=== PATIENT | female | born 1985 | race Caucasian/White ===

== ENCOUNTER 2018-06-21 09:10 | Inpatient (IN) | payer OTHER ==
[2018-06-21] MEDS ORDERED: Sodium Chloride 0.9% 10 ML Syringe FLUSH PRN (09:35)
[2018-06-21] MEDS ORDERED: Nalbuphine 20 MG/ML 1 ML Syringe IVPUSH PRN (09:35)
[2018-06-21] MEDS ORDERED: Oxytocin/Lactated Ringers 10 UNIT/1,000 ML BAG IV SCH ×2 (09:45→13:30)
--- NOTE | 2018-06-21 10:36 | PCM.LDHP ---
<Kailash Reeves - Last Filed: 06/21/18 11:31> L&D History of Present Illness - General Date of Service: 06/21/18 Admit Problem/Dx: Admission Diagnosis/Problem Admission Diagnosis/Problem 06/21/18 10:31 Spontaneous rupture of membranes Source of Information: Patient History Limitations: Reports: No Limitations - History of Present Illness Introduction:: Freda is a 32yo at gestational age 38 4/7, who was at her appointment today and was found to have obvious gross rupture of membranes. She states that around 7:15am on 06/21/2018 she noticed a sharp pain in her back that quickly went away after a few seconds and this was concurrent with a clear amount of fluid that since this time has been continuously leaking in small amounts. She states that she did not believe this to be incontinence since the fluid felt different. There was no blood in the fluid or vaginal bleeding. She states positive movement. She has an CHRYSTAL of 07/01/2018 confirmed by LMP and early ultrasound on 04/20/2018. She is blood type A+, antibody negative, rubella status immune, VDRL /RPR nonreactive. She was GBS negative on 05/31/2018. This has been complicated by anemia in the third trimester that has been treated with iron and vitamin C. 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 Medications: Ferrous sulfate 325mg twice a day. vitamin once daily. Vitamin C once daily. Allergies: Neosporin- rash Review of systems: as below Assessment/ Plan: 1. Spontaneous rupture of membranes plan for normal spontaneous vaginal delivery. 2. Patient desires epidural for pain management. 3. GBS negative, no need for antibiotic prophylaxis. 4. Blood type A+, no need for rhogam. 5. Patient plans to breast feed. 6. HPV will require follow up after delivery. Pain Score: 0 Associated Symptoms: Reports: vaginal fluid - Related Data Allergies/Adverse Reactions: Allergies Allergy/AdvReac Type Severity Reaction Status Date / Time bacitracin Allergy Rash Verified 06/21/18 09:33 [From Neosporin ([id number])] neomycin Allergy Rash Verified 06/21/18 09:33 [From Neosporin ([id number])] polymyxin B Allergy Rash Verified 06/21/18 09:33 [From Neosporin ([id number])] Home Medications: Home Meds Ferrous Sulfate 325 mg PO BID 06/21/18 [History] Vits #93/Iron Fum/FA [ Formula Tablet] 1 each PO DAILY [History] Past Medical History HEENT History: Reports: None Cardiovascular History: Reports: None Respiratory History: Reports: None Gastrointestinal History: Reports: None Genitourinary History: Reports: None 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 No history of miscarriage, elective , or ectopics. Regular menses at approx. 28 days without heavy flow days. Menarche age 12yo. Musculoskeletal History: Reports: None Neurological History: Reports: None Psychiatric History: Reports: None Endocrine/Metabolic History: Reports: None Hematologic History: Reports: Anemia Other Hematologic History: in , resolved on iron supplement with Vit C. Immunologic History: Reports: None Oncologic (Cancer) History: Reports: None Dermatologic History: Reports: Psoriasis (States past history of psoriasis like rash that resolved with elimination of cow's milk from diet.) - Infectious Disease History Infectious Disease History: Reports: None - Past Surgical History Head Surgeries/Procedures: Reports: None HEENT Surgical History: Reports: Myringotomy w Tube(s) (in childhood, resolved without complications.), Oral Surgery (removal of wisdom teeth as teenager without complications) Cardiovascular Surgical History: Reports: None Respiratory Surgical History: Reports: None GI Surgical History: Reports: None Female Surgical History: Reports: None Endocrine Surgical History: Reports: None Neurological Surgical History: Reports: None Musculoskeletal Surgical History: Reports: None Oncologic Surgical History: Reports: None Dermatological Surgical History: Reports: None Social & Family History - Family History HEENT: Reports: None Cardiac: Reports: Other (See Below) (Mother had unknown cardiovascular disease and passed as a result at age 42. Patient unsure of exact nature. Stated mother was a smoker with poor cholesterol levels.) Respiratory: Reports: None GI: Reports: None : Reports: None OBGYN: Reports: None Musculoskeletal: Reports: None Neurological: Reports: None Psychiatric: Reports: None Endocrine/Metabolic: Reports: None Hematologic: Reports: None Immunologic: Reports: None Dermatologic: Reports: None Oncologic: Reports: Lung (Father passed at 53 from lung cancer, was smoker.) Other Family History: Sister age 28yo alive and well. - Tobacco Use Smoking Status *Q: Never Smoker Tobacco Use Within Last Twelve Months: No - Tobacco Core Measures Tobacco Use/Smoking Within Last 30 Days: No - Caffeine Use Caffeine Use: Reports: None - Alcohol Use Alcohol Use History: Yes Alcohol Use Frequency: Not Used in Over 6 Months Alcohol Use Comment: Denies alcohol use in , states rarely 1-2 per month before . - Recreational Drug Use Recreational Drug Use: No Drug Use in Last 12 Months: No - Sexual History Sexual History: Reports: Single Partner - Living Situation & Occupation Living situation: Reports: Occupation: Employed Social History Comment: Lives in apartment in [place], feels safe at home with . No history recent of travel outside the , no history. Has two dogs. H&P Review of Systems - Review of Systems: Review Of Systems: See Below General: Reports: No Symptoms HEENT: Reports: No Symptoms Pulmonary: Reports: No Symptoms Cardiovascular: Reports: Edema (Trace edema on left leg at ankle.) Gastrointestinal: Reports: No Symptoms Genitourinary: Reports: No Symptoms Musculoskeletal: Reports: No Symptoms Psychiatric: Reports: No Symptoms Neurological: Reports: No Symptoms Hematologic/Lymphatic: Reports: Anemia (In , treated with Iron and Vit C.) Immunologic: Reports: Other (Mild intolerance to cow's milk, states mild rashes and gerd like symptoms. No anaphylaxis.) L&D Exam - Exam Exam: See Below - Vital Signs Vital Signs: BP: 120/76 HR:84 RR:16 Temp: 99.8 F Weight: 77.564 kg - OB Specific Fundal Height In cm: 38 Contraction Intensity: Patient denies feeling contractions. Movement: Active Heart Tones: Present Heart Tones per Min: 144 - Lama Score Lama Score Cervix Position: Anterior Lama Score Consistency: Soft Lama Score Effacement: >80% Lama Score Dilation: 3-4 cm Lama Score 's Station: -3 Lama Score Total: 9 - Exam General: Alert, Oriented HEENT: Conjunctiva Clear, EOMI, Hearing Intact, Mucosa Moist & [place], Nares Patent, Posterior Pharynx Clear, Pupils Equal, Pupils Reactive Neck: Supple, Trachea Midline Lungs: Clear to Auscultation, Normal Respiratory Effort Cardiovascular: Regular Rate, Regular Rhythm, Normal S1, Normal S2 GI/Abdominal Exam: Normal Bowel Sounds (Gravid) Back Exam: Normal Inspection, Full Range of Motion Extremities: Normal Range of Motion, Non-Tender, Other (Trace edema to ankles.) Skin: Warm, Dry, Intact Neurological: Cranial Nerves Intact, Reflexes Equal Bilateral Psychiatric: Alert, Normal Affect, Normal Mood - Patient Data Lab Results Last 24 hrs: Laboratory Results - last 24 hr 06/21/18 Range/Units 10:00 WBC 6.21 (3.98-10.04) K/mm3 RBC 4.04 (3.98-5.22) M/mm3 Hgb 13.2 (11.2-15.7) gm/L Hct 39.4 (34.1-44.9) % MCV 97.5 H (79.4-94.8) fl MCH 32.7 H (25.6-32.2) pg MCHC 33.5 (32.2-35.5) g/dl RDW Std Deviation 44.9 (36.4-46.3) fL Plt Count 148 L (182-369) K/mm3 MPV 11.1 (9.4-12.3) fl Neut % (Auto) 70.6 (34.0-71.1) % Lymph % (Auto) 20.8 (19.3-51.7) % [place] % (Auto) 5.8 (4.7-12.5) % Eos % (Auto) 2.3 (0.7-5.8) Baso % (Auto) 0.2 (0.1-1.2) % Neut # (Auto) 4.39 (1.56-6.13) K/mm3 Lymph # (Auto) 1.29 (1.18-3.74) K/mm3 [place] # (Auto) 0.36 (0.24-0.36) K/mm3 Eos # (Auto) 0.14 (0.04-0.36) K/mm3 Baso # (Auto) 0.01 (0.01-0.08) K/mm3 Result Diagrams: 06/21/18 10:00 Problem List Initiated/Reviewed/Updated: Yes Orders Last 24hrs: Active Orders 24 hr Category Date Time Status Activity as Tolerated [RC] PFP Care 06/21/18 09:35 Active Communication Order [RC] ASDIRECTED Care 06/21/18 09:35 Active Heart Tones [RC] ASDIRECTED Care 06/21/18 09:36 Active Non Stress Test [RC] PER UNIT ROUTINE Care 06/21/18 09:35 Active Notify Provider [RC] PFP Care 06/21/18 09:35 Active Notify Provider [RC] PRN Care 06/21/18 09:35 Active Peripheral IV Care [RC] . DIRECTED Care 06/21/18 09:36 Active Vital Signs [RC] PER UNIT ROUTINE Care 06/21/18 09:35 Active Regular Diet [DIET] Diet 06/21/18 Lunch Active RAPID PLASMA REAGIN,RPR [CHEM] Routine Lab 06/21/18 10:00 Received Lactated Ringers [Ringers, Lactated] 1,000 ml Med 06/21/18 09:45 Active IV ASDIRECTED Nalbuphine [Nubain] Med 06/21/18 09:35 Active 10 mg IVPUSH Q2H PRN Oxytocin/Lactated Ringers [Pitocin in LR 10 Units/1,000 Med 06/21/18 09:45 Active ML] 10 unit in 1,000 ml IV .CONTINUOUS Sodium Chloride 0.9% [Saline Flush] Med 06/21/18 09:35 Active 10 ml FLUSH ASDIRECTED PRN Electronic Heart Tones Ext w TOCO [WOMSER] Oth 06/21/18 09:35 Ordered Routine Electronic Heart Tones Internal [WOMSER] Per Unit Oth 06/21/18 09:35 Ordered Routine Peripheral IV Insertion Adult [OM.PC] Routine Oth 06/21/18 09:35 Ordered Resuscitation Status Routine Resus Stat 06/21/18 09:35 Ordered Medication Orders Lactated Ringer's (Ringers, Lactated) 1,000 mls @ 100 mls/hr IV ASDIRECTED HELENA Oxytocin/Lactated Ringer's (Pitocin In Lr 10 Units/1,000 Ml) 10 unit in 1,000 mls @ 500 mls/hr IV .CONTINUOUS HELENA Nalbuphine HCl (Nubain) 10 mg IVPUSH Q2H PRN PRN Reason: pain Sodium Chloride (Saline Flush) 10 ml FLUSH ASDIRECTED PRN PRN Reason: Keep Vein Open <Nicolas Estes - Last Filed: 06/22/18 06:51> L&D History of Present Illness - General Admit Problem/Dx: Patient Status Order with Admit Dx/Problem 06/21/18 16:33 Patient Status [ADT] Routine Admission Diagnosis/Problem Admission Diagnosis/Problem - planned L&D Exam - Vital Signs Vital Signs: Last Vital Signs Temp 37.7 C 06/21/18 13:40 Pulse 84 06/21/18 13:40 Resp 16 06/21/18 15:55 BP 125/82 06/21/18 13:40 Pulse Ox 99 06/21/18 13:40 - Patient Data Lab Results Last 24 hrs: Laboratory Results - last 24 hr 06/21/18 06/21/18 Range/Units 10:00 10:00 WBC 6.21 (3.98-10.04) K/mm3 RBC 4.04 (3.98-5.22) M/mm3 Hgb 13.2 (11.2-15.7) gm/L Hct 39.4 (34.1-44.9) % MCV 97.5 H (79.4-94.8) fl MCH 32.7 H (25.6-32.2) pg MCHC 33.5 (32.2-35.5) g/dl RDW Std Deviation 44.9 (36.4-46.3) fL Plt Count 148 L (182-369) K/mm3 MPV 11.1 (9.4-12.3) fl Neut % (Auto) 70.6 (34.0-71.1) % Lymph % (Auto) 20.8 (19.3-51.7) % [place] % (Auto) 5.8 (4.7-12.5) % Eos % (Auto) 2.3 (0.7-5.8) Baso % (Auto) 0.2 (0.1-1.2) % Neut # (Auto) 4.39 (1.56-6.13) K/mm3 Lymph # (Auto) 1.29 (1.18-3.74) K/mm3 [place] # (Auto) 0.36 (0.24-0.36) K/mm3 Eos # (Auto) 0.14 (0.04-0.36) K/mm3 Baso # (Auto) 0.01 (0.01-0.08) K/mm3 RPR Non-reactive (NONREACTIVE) Result Diagrams: 06/21/18 10:00 - Problem List (1) 38 weeks gestation of SNOMED Code(s): 53512925 ICD Code: Z3A.38 - 38 WEEKS GESTATION OF Status: Acute Current Visit: Yes (2) Anemia complicating SNOMED Code(s): 14779808 ICD Code: O99.019 - ANEMIA COMPLICATING , UNSPECIFIED TRIMESTER Status: Acute Current Visit: Yes Problem List Initiated/Reviewed/Updated: Yes Orders Last 24hrs: Active Orders 24 hr Category Date Time Status Patient Status [ADT] Routine ADT 06/21/18 16:33 Active Activity as Tolerated [RC] PFP Care 06/21/18 09:35 Active Communication Order [RC] ASDIRECTED Care 06/21/18 09:35 Active Communication Order [RC] ASDIRECTED Care 06/21/18 13:13 Active Notify Provider [RC] ASDIRECTED Care 06/21/18 13:13 Active Notify Provider [RC] PFP Care 06/21/18 09:35 Active Notify Provider [RC] PRN Care 06/21/18 09:35 Active Oxygen Therapy [RC] ASDIRECTED Care 06/21/18 13:13 Active Peripheral IV Care [RC] . DIRECTED Care 06/21/18 09:36 Active Peripheral IV Care [RC] . DIRECTED Care 06/22/18 06:38 Ordered Procedure Site Prep Instruct [RC] ASDIRECTED Care 06/22/18 06:38 Ordered Pulse Oximetry [RC] ASDIRECTED Care 06/21/18 13:13 Active Verify Patient Consent Obtain [RC] ASDIRECTED Care 06/21/18 13:13 Active Verify Patient Consent Obtain [RC] PER UNIT ROUTINE Care 06/22/18 06:38 Ordered Vital Signs [RC] PER UNIT ROUTINE Care 06/21/18 09:35 Active Vital Signs [RC] PFP Care 06/22/18 06:38 Ordered Nothing Per Oral Diet [DIET] Diet 06/22/18 Breakfast Ordered Regular Diet [DIET] Diet 06/21/18 Lunch Active TYPE AND SCREEN [BBK] Routine Lab 06/22/18 06:38 Ordered Lactated Ringers @ 125 MLS/HR(1000ml) Med 06/22/18 06:45 Ordered Lactated Ringers [Ringers, Lactated] 1,000 ml IV ASDIRECTED Lactated Ringers [Ringers, Lactated] 1,000 ml Med 06/21/18 09:45 Active IV ASDIRECTED Nalbuphine [Nubain] Med 06/21/18 09:35 Active 10 mg IVPUSH Q2H PRN Nalbuphine [Nubain] Med 06/22/18 06:38 Ordered 10 mg IVPUSH Q2H PRN Oxytocin/Lactated Ringers [Pitocin in LR 10 Units/1,000 Med 06/21/18 09:45 Active ML] 10 unit in 1,000 ml IV .CONTINUOUS Oxytocin/Lactated Ringers [Pitocin in LR 10 Units/1,000 Med 06/22/18 06:45 Ordered ML] 10 unit in 1,000 ml IV ASDIRECTED Oxytocin/Lactated Ringers [Pitocin in LR 10 Units/1,000 Med 06/21/18 13:30 Active ML] 10 unit in 1,000 ml IV TITRATE Sodium Chloride 0.9% [Saline Flush] Med 06/21/18 09:35 Active 10 ml FLUSH ASDIRECTED PRN Sodium Chloride 0.9% [Saline Flush] Med 06/22/18 06:38 Ordered 10 ml FLUSH ASDIRECTED PRN ceFAZolin [Ancef] 2 gm Med 06/22/18 06:38 Ordered Premix Bag 1 bag IV ONETIME diphenhydrAMINE [Benadryl] Med 06/21/18 13:13 Active 25 mg IVPUSH Q6H PRN ePHEDrine [ePHEDrine sulfate] Med 06/21/18 13:13 Active 5 mg IVPUSH ASDIRECTED PRN fentaNYL [Sublimaze] Med 06/21/18 13:13 Active 100 mcg EPIDUR Q3H PRN fentaNYL/Bupivacaine/NS/PF [[id number]-Olfha-QX 2 MCG/ML- Med 06/21/18 13:15 Active 0.125%] 100 ml EP ASDIRECTED Electronic Heart Tones Ext w TOCO [WOMSER] Oth 06/21/18 09:35 Ordered Routine Electronic Heart Tones Internal [WOMSER] Per Unit Oth 06/21/18 09:35 Ordered Routine Peripheral IV Insertion Adult [OM.PC] Routine Oth 06/21/18 09:35 Ordered Peripheral IV Insertion Adult [OM.PC] Routine Oth 06/22/18 06:38 Ordered Schedule Procedure [COMM] Per Unit Routine Oth 06/22/18 06:38 Ordered Resuscitation Status Routine Resus Stat 06/21/18 09:35 Ordered Medication Orders Diphenhydramine HCl (Benadryl) 25 mg IVPUSH Q6H PRN PRN Reason: Itching Ephedrine Sulfate (Ephedrine Sulfate) 5 mg IVPUSH ASDIRECTED PRN PRN Reason: HYPOTENTSION Fentanyl (Sublimaze) 100 mcg EPIDUR Q3H PRN PRN Reason: Pain Last Admin: 06/21/18 15:29 Dose: 100 mcg Fentanyl/Bupivacaine HCl (Lipqabmz-Dawlr-Kw 2 Mcg/Ml-0.125%) 100 ml EP ASDIRECTED HELENA Last Admin: 06/22/18 00:21 Dose: 100 ml Admin: 06/21/18 15:30 Dose: 100 ml Lactated Ringer's (Ringers, Lactated) 1,000 mls @ 100 mls/hr IV ASDIRECTED HELENA Last Admin: 06/21/18 19:45 Dose: 100 mls/hr Infusion: 06/21/18 19:45 Dose: 100 mls/hr Admin: 06/21/18 15:33 Dose: 100 mls/hr Infusion: 06/21/18 15:33 Dose: 100 mls/hr Admin: 06/21/18 13:46 Dose: 100 mls/hr Oxytocin/Lactated Ringer's (Pitocin In Lr 10 Units/1,000 Ml) 10 unit in 1,000 mls @ 500 mls/hr IV .CONTINUOUS HELENA Oxytocin/Lactated Ringer's (Pitocin In Lr 10 Units/1,000 Ml) 10 unit in 1,000 mls @ 12 mls/hr IV TITRATE HELENA; Protocol Last Titration: 06/22/18 03:25 Dose: 12 munits/min, 72 mls/hr Titration: 06/22/18 02:31 Dose: 10 munits/min, 60 mls/hr Titration: 06/22/18 02:01 Dose: 8 munits/min, 48 mls/hr Titration: 06/21/18 22:49 Dose: 6 munits/min, 36 mls/hr Titration: 06/21/18 20:20 Dose: 8 munits/min, 48 mls/hr Titration: 06/21/18 19:40 Dose: 6 munits/min, 36 mls/hr Titration: 06/21/18 19:00 Dose: 4 munits/min, 24 mls/hr Titration: 06/21/18 17:33 Dose: 2 munits/min, 12 mls/hr Titration: 06/21/18 17:14 Dose: 4 munits/min, 24 mls/hr Titration: 06/21/18 16:55 Dose: 6 munits/min, 36 mls/hr Titration: 06/21/18 16:26 Dose: 4 munits/min, 24 mls/hr Titration: 06/21/18 15:50 Dose: 2 munits/min, 12 mls/hr Titration: 06/21/18 14:11 Dose: 4 munits/min, 24 mls/hr Admin: 06/21/18 13:46 Dose: 2 munits/min, 12 mls/hr Cefazolin Sodium/Dextrose 2 gm (/ Premix) 50 mls @ 100 mls/hr IV ONETIME ONE Stop: 06/22/18 07:07 Lactated Ringer's (Ringers, Lactated) 1,000 mls @ 125 mls/hr IV ASDIRECTED HELENA Oxytocin/Lactated Ringer's (Pitocin In Lr 10 Units/1,000 Ml) 10 unit in 1,000 mls @ 100 mls/hr IV ASDIRECTED HELENA; Protocol Nalbuphine HCl (Nubain) 10 mg IVPUSH Q2H PRN PRN Reason: pain Nalbuphine HCl (Nubain) 10 mg IVPUSH Q2H PRN PRN Reason: pain Sodium Chloride (Saline Flush) 10 ml FLUSH ASDIRECTED PRN PRN Reason: Keep Vein Open Sodium Chloride (Saline Flush) 10 ml FLUSH ASDIRECTED PRN PRN Reason: Keep Vein Open Assessment/Plan Comment:: I have seen and evaluated the patient and agree with the student's note as above. Refer to observation for spontaneous rupture of membranes Start Pitocin for augmentation of labor with irregular contractions per patient report Continuous monitoring Place IV and have Lactated Ringer's at 125 ml/hr May have small amounts of regular diet Activity as tolerated May have epidural as desired Plans to breast-feed after delivery Anticipate vaginal delivery unless otherwise indicated Nicolas Estes MD 6:51 AM 06/22/2018
[2018-06-21] MEDS ORDERED: ePHEDrine 50 MG/ML SDV IVPUSH PRN (13:13)
[2018-06-21] MEDS ORDERED: fentaNYL 100 MCG/2 ML SDV EPIDUR PRN (13:13)
[2018-06-21] MEDS ORDERED: diphenhydrAMINE 50 MG/ML SDV IVPUSH PRN (13:13)
--- NOTE | 2018-06-21 13:40 | PCM.PREANE ---
Preanesthetic Assessment - Anesthesia/Transfusion/Family Hx Anesthesia History: No Prior Anesthesia Family History of Anesthesia Reaction: No Transfusion History: No Prior Transfusion(s) - Review of Systems General: No Symptoms Pulmonary: No Symptoms Cardiovascular: Dyspnea on Exertion (with ) Gastrointestinal: Abdominal Pain (labor contractions) Neurological: No Symptoms - Physical Assessment Pulse: 84 O2 Sat by Pulse Oximetry: 99 Respiratory Rate: 18 Blood Pressure: 125/82 Temperature: 37.7 C Vital Signs: Last Vital Signs Temp 37.7 C 06/21/18 09:35 Pulse 84 06/21/18 09:35 Resp 18 06/21/18 09:35 BP 125/82 06/21/18 09:35 Pulse Ox 99 06/21/18 09:35 Height: 1.57 m Weight: 77.564 kg ASA Class: 2 Mental Status: Alert & Oriented x3 Airway Class: Mallampati = 1 Dentition: Reports: Normal Dentition Thyro-Mental Finger Breadths: 3 Mouth Opening Finger Breadths: 3 ROM/Head Extension: Full Lungs: Clear to Auscultation, Normal Respiratory Effort Cardiovascular: Regular Rate, Regular Rhythm - Lab Values: Laboratory Last Values WBC 6.21 K/mm3 (3.98-10.04) 06/21/18 10:00 RBC 4.04 M/mm3 (3.98-5.22) 06/21/18 10:00 Hgb 13.2 gm/L (11.2-15.7) 06/21/18 10:00 Hct 39.4 % (34.1-44.9) 06/21/18 10:00 MCV 97.5 fl (79.4-94.8) H 06/21/18 10:00 MCH 32.7 pg (25.6-32.2) H 06/21/18 10:00 MCHC 33.5 g/dl (32.2-35.5) 06/21/18 10:00 RDW Std Deviation 44.9 fL (36.4-46.3) 06/21/18 10:00 Plt Count 148 K/mm3 (182-369) L 06/21/18 10:00 MPV 11.1 fl (9.4-12.3) 06/21/18 10:00 Neut % (Auto) 70.6 % (34.0-71.1) 06/21/18 10:00 Lymph % (Auto) 20.8 % (19.3-51.7) 06/21/18 10:00 [place] % (Auto) 5.8 % (4.7-12.5) 06/21/18 10:00 Eos % (Auto) 2.3 (0.7-5.8) 06/21/18 10:00 Baso % (Auto) 0.2 % (0.1-1.2) 06/21/18 10:00 Neut # (Auto) 4.39 K/mm3 (1.56-6.13) 06/21/18 10:00 Lymph # (Auto) 1.29 K/mm3 (1.18-3.74) 06/21/18 10:00 [place] # (Auto) 0.36 K/mm3 (0.24-0.36) 06/21/18 10:00 Eos # (Auto) 0.14 K/mm3 (0.04-0.36) 06/21/18 10:00 Baso # (Auto) 0.01 K/mm3 (0.01-0.08) 06/21/18 10:00 - Allergies Allergies/Adverse Reactions: Allergies Allergy/AdvReac Type Severity Reaction Status Date / Time bacitracin Allergy Rash Verified 06/21/18 09:33 [From Neosporin (vnl-[id number])] neomycin Allergy Rash Verified 06/21/18 09:33 [From Neosporin (ial-exh-thxvs)] polymyxin B Allergy Rash Verified 06/21/18 09:33 [From Neosporin (sus-qhu-eowwm)] - Anesthesia Plan Pre-Op Medication Ordered: None - Acknowledgements Anesthesia Type Planned: Epidural Pt an Appropriate Candidate for the Planned Anesthesia: Yes Alternatives and Risks of Anesthesia Discussed w Pt/Guardian: Yes Pt/Guardian Understands and Agrees with Anesthesia Plan: Yes PreAnesthesia Questionnaire - Past Health History Medical/Surgical History: Denies Medical/Surgical History HEENT History: Reports: None Cardiovascular History: Reports: None Respiratory History: Reports: None Gastrointestinal History: Reports: None, GERD Genitourinary History: Reports: None 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 No history of miscarriage, elective , or ectopics. Regular menses at approx. 28 days without heavy flow days. Menarche age 12yo. Musculoskeletal History: Reports: None Neurological History: Reports: None Psychiatric History: Reports: None Endocrine/Metabolic History: Reports: None Hematologic History: Reports: Anemia Other Hematologic History: in , resolved on iron supplement with Vit C. Immunologic History: Reports: None Oncologic (Cancer) History: Reports: None Dermatologic History: Reports: Psoriasis (States past history of psoriasis like rash that resolved with elimination of cow's milk from diet.) - Infectious Disease History Infectious Disease History: Reports: None - Past Surgical History Head Surgeries/Procedures: Reports: None HEENT Surgical History: Reports: Myringotomy w Tube(s) (in childhood, resolved without complications.), Oral Surgery (removal of wisdom teeth as teenager without complications) Cardiovascular Surgical History: Reports: None Respiratory Surgical History: Reports: None GI Surgical History: Reports: None Female Surgical History: Reports: None Endocrine Surgical History: Reports: None Neurological Surgical History: Reports: None Musculoskeletal Surgical History: Reports: None Oncologic Surgical History: Reports: None Dermatological Surgical History: Reports: None - SUBSTANCE USE Smoking Status *Q: Never Smoker Tobacco Use Within Last Twelve Months: No Second Hand Smoke Exposure: No Recreational Drug Use History: No - HOME MEDS Home Medications: Home Meds Ferrous Sulfate 325 mg PO BID 06/21/18 [History] Vits #93/Iron Fum/FA [ Formula Tablet] 1 each PO DAILY [History] - CURRENT (IN HOUSE) MEDS Current Meds: Current Medications Diphenhydramine HCl (Benadryl) 25 mg IVPUSH Q6H PRN PRN Reason: Itching Ephedrine Sulfate (Ephedrine Sulfate) 5 mg IVPUSH ASDIRECTED PRN PRN Reason: HYPOTENTSION Fentanyl (Sublimaze) 100 mcg EPIDUR Q3H PRN PRN Reason: Pain Fentanyl/Bupivacaine HCl (Roemhqtk-Czrdk-Os 2 Mcg/Ml-0.125%) 100 ml EP ASDIRECTED HELENA Lactated Ringer's (Ringers, Lactated) 1,000 mls @ 100 mls/hr IV ASDIRECTED HELENA Oxytocin/Lactated Ringer's (Pitocin In Lr 10 Units/1,000 Ml) 10 unit in 1,000 mls @ 500 mls/hr IV .CONTINUOUS HELENA Oxytocin/Lactated Ringer's (Pitocin In Lr 10 Units/1,000 Ml) 10 unit in 1,000 mls @ 12 mls/hr IV TITRATE HELENA; Protocol Nalbuphine HCl (Nubain) 10 mg IVPUSH Q2H PRN PRN Reason: pain Sodium Chloride (Saline Flush) 10 ml FLUSH ASDIRECTED PRN PRN Reason: Keep Vein Open
[2018-06-21] MEDS: Lactated Ringers 1,000 ML IV SCH ×3 (13:46→19:45)
[2018-06-21] MEDS: fentaNYL/Bupivacaine-NS 2 MCG/ML-0.125%/PF 100 ML Bag EP SCH (15:30)
--- NOTE | 2018-06-21 18:39 | PCM.PNLD ---
Labor Progress Note - VS & Meds Vital Signs: Last Vital Signs Temp 37.7 C 06/21/18 13:40 Pulse 84 06/21/18 13:40 Resp 16 06/21/18 15:55 BP 125/82 06/21/18 13:40 Pulse Ox 99 06/21/18 13:40 Active Medications: Current Medications Diphenhydramine HCl (Benadryl) 25 mg IVPUSH Q6H PRN PRN Reason: Itching Ephedrine Sulfate (Ephedrine Sulfate) 5 mg IVPUSH ASDIRECTED PRN PRN Reason: HYPOTENTSION Fentanyl (Sublimaze) 100 mcg EPIDUR Q3H PRN PRN Reason: Pain Last Admin: 06/21/18 15:29 Dose: 100 mcg Fentanyl/Bupivacaine HCl (Pphfstju-Ytkcq-Mh 2 Mcg/Ml-0.125%) 100 ml EP ASDIRECTED HELENA Last Admin: 06/21/18 15:30 Dose: 100 ml Lactated Ringer's (Ringers, Lactated) 1,000 mls @ 100 mls/hr IV ASDIRECTED HELENA Last Admin: 06/21/18 15:33 Dose: 100 mls/hr Oxytocin/Lactated Ringer's (Pitocin In Lr 10 Units/1,000 Ml) 10 unit in 1,000 mls @ 500 mls/hr IV .CONTINUOUS HELENA Oxytocin/Lactated Ringer's (Pitocin In Lr 10 Units/1,000 Ml) 10 unit in 1,000 mls @ 12 mls/hr IV TITRATE HELENA; Protocol Last Titration: 06/21/18 17:33 Dose: 2 munits/min, 12 mls/hr Nalbuphine HCl (Nubain) 10 mg IVPUSH Q2H PRN PRN Reason: pain Sodium Chloride (Saline Flush) 10 ml FLUSH ASDIRECTED PRN PRN Reason: Keep Vein Open - Uterine Contractions Uterine Monitoring Mode: External [place] Contraction Frequency (min): 2-3 Contraction Duration (sec): 60-75 Contraction Intensity: Moderate to Strong Uterine Resting Tone: Soft - Monitoring Monitor Mode: Doppler/Auscultation Heart Rate (FHR) Baseline: 130 Heart Rate (FHR) Per Doppler: 130 Heart Rate (FHR) Variability: Moderate (6-25 bmp) Accelerations: Present, 15x15 Decelerations: None, Variable (questionable variable decelerations around 1711) Strip Review: Category I - Vaginal Exam Dilation (cm): 5 Effacement (Percent): 80 Station: -3 Cervical Position: Midposition Sterile Vaginal Exam Performed By: Nicolas Estes Vaginal Exam Comment: Artificial rupture of membranes of a forebag with [place] with return of small amount of blood-tinged fluid. Mother and baby tolerated without difficulty. - Labor Progress (Free Text) Labor Progress: Continue Pitocin for augmentation of labor Continue to monitor vitals Continuous monitoring for Patient with epidural in place Patient making slow progress at this time Anticipate vaginal delivery unless otherwise indicated Nicolas Estes M.D. 6:38 PM 06/21/2018
--- NOTE | 2018-06-21 19:50 | PCM.SN ---
- Free Text/Narrative Note: 1928 called to room 31 for epidural line that came apart at filter-clamp on patient's shoulder. Using sterile technique the epidural catheter was cut 2.5 inches back and a new clamp was placed, flushed, and connected to the filter. Out of room at 1940. Report to NICKOLAS.
[2018-06-21] MEDS ORDERED: Bupivacaine 0.25% 10 ML SDV ONE (22:00)
[2018-06-22] MEDS: fentaNYL/Bupivacaine-NS 2 MCG/ML-0.125%/PF 100 ML Bag EP SCH (00:21)
[2018-06-22] MEDS ORDERED: Metoclopramide 10 MG/2 ML SDV ONE (06:37)
[2018-06-22] MEDS ORDERED: Bupivacaine 0.5% 30 ML SDV ONE (06:37)
[2018-06-22] MEDS ORDERED: Metoclopramide 10 MG/2 ML SDV IVPUSH ONE (06:38)
[2018-06-22] MEDS ORDERED: Citric Acid/Sodium Citrate Solution 30 ML Cup PO ONE (06:38)
[2018-06-22] MEDS ORDERED: Nalbuphine 20 MG/ML 1 ML Syringe IVPUSH PRN (06:38)
[2018-06-22] MEDS ORDERED: Sodium Chloride 0.9% 10 ML Syringe FLUSH PRN (06:38)
[2018-06-22] MEDS ORDERED: ceFAZolin 2 GM in Premix Bag 1 BAG IV ONE (06:38)
[2018-06-22] MEDS ORDERED: Oxytocin/Lactated Ringers 10 UNIT/1,000 ML BAG IV SCH ×2 (06:45→09:36)
[2018-06-22] MEDS ORDERED: Lactated Ringers 1,000 ML IV SCH ×2 (06:45→09:36)
--- NOTE | 2018-06-22 06:48 | PCM.PNLD ---
Labor Progress Note - VS & Meds Vital Signs: Last Vital Signs Temp 37.7 C 06/21/18 13:40 Pulse 84 06/21/18 13:40 Resp 16 06/21/18 15:55 BP 125/82 06/21/18 13:40 Pulse Ox 99 06/21/18 13:40 Active Medications: Current Medications Diphenhydramine HCl (Benadryl) 25 mg IVPUSH Q6H PRN PRN Reason: Itching Ephedrine Sulfate (Ephedrine Sulfate) 5 mg IVPUSH ASDIRECTED PRN PRN Reason: HYPOTENTSION Fentanyl (Sublimaze) 100 mcg EPIDUR Q3H PRN PRN Reason: Pain Last Admin: 06/21/18 15:29 Dose: 100 mcg Fentanyl/Bupivacaine HCl ([place]-Wwtkd-Cn 2 Mcg/Ml-0.125%) 100 ml EP ASDIRECTED HELENA Last Admin: 06/22/18 00:21 Dose: 100 ml Lactated Ringer's (Ringers, Lactated) 1,000 mls @ 100 mls/hr IV ASDIRECTED HELENA Last Admin: 06/21/18 19:45 Dose: 100 mls/hr Oxytocin/Lactated Ringer's (Pitocin In Lr 10 Units/1,000 Ml) 10 unit in 1,000 mls @ 500 mls/hr IV .CONTINUOUS HELENA Oxytocin/Lactated Ringer's (Pitocin In Lr 10 Units/1,000 Ml) 10 unit in 1,000 mls @ 12 mls/hr IV TITRATE HELENA; Protocol Last Titration: 06/22/18 03:25 Dose: 12 munits/min, 72 mls/hr Nalbuphine HCl (Nubain) 10 mg IVPUSH Q2H PRN PRN Reason: pain Sodium Chloride (Saline Flush) 10 ml FLUSH ASDIRECTED PRN PRN Reason: Keep Vein Open Discontinued Medications Metoclopramide HCl (Reglan) Confirm Administered Dose 10 mg .ROUTE .STK-MED ONE Stop: 06/22/18 06:38 - Uterine Contractions Uterine Monitoring Mode: External [place] Contraction Frequency (min): 2-4 Contraction Duration (sec): 60-75 Contraction Intensity: Strong Uterine Resting Tone: Soft - Monitoring Monitor Mode: Doppler/Auscultation Heart Rate (FHR) Baseline: 145 Heart Rate (FHR) Per Doppler: 145 Heart Rate (FHR) Variability: Moderate (6-25 bmp) Accelerations: Present, 15x15 Decelerations: Variable (with contractions and pushing) Strip Review: Category II - Vaginal Exam Dilation (cm): 10 Effacement (Percent): 100 Station: 4 Cervical Position: Anterior Sterile Vaginal Exam Performed By: Nicolas Estes - Labor Progress (Free Text) Labor Progress: Patient had been pushing for approximately 4.5 hours and was able to bring the baby down to +3 station. Exam was performed and felt to be in direct OA position. Discussed the risks and benefits of a vacuum-assisted vaginal delivery with the patient and she desired to proceed with vacuum-assisted delivery. The Flor's type vacuum was inserted into the vagina and applied over the head and care was taken to ensure that there was no vaginal tissue between the vacuum and the head. With the next contraction vacuum was applied into the green area on the vacuum extractor and gentle downward traction was applied with maternal pushing effort. There was 1 pop off with the Flor type vacuum extractor. Reattempted to place the Flor type vacuum extractor into the vagina but there was additional swelling leading to difficulty to placing the vacuum extractor appropriately. The mushroom-type extractor was then able to be inserted and applied without difficulty. Again care was taken to ensure that there is no vaginal tissue between the vacuum extractor on the head. With the next contraction vacuum was applied into the green level on the vacuum extractor and gentle downward traction was applied for 1 contraction. Vacuum was released between contractions. With the second contraction with the mushroom extractor there was an additional pop off. The vacuum extractor was then reapplied and again care was taken to ensure that there was no vaginal tissue between the extractor and the head. Vacuum was applied to the green safe level on the extractor and over the course of 2 contractions the head was brought down to +4 station. With the fourth contraction after the second pop-off there was a third pop off of the vacuum extractor. Infant was doing well throughout the entirety of the attempted vacuum extraction. The vacuum extractor was applied for approximately a total of 6-7 minutes over the course of 7 contractions. Discussion was had with patient regarding options at this time and she desired to continue with pushing for approximately 30 additional minutes. The head was able to come down slightly but patient was becoming tired and starting to experience maternal exhaustion. Dr. Moss was called for assessment and he felt that patient could potentially deliver vaginally and offered for her to continue pushing vaginally. After further pushes for approximately 10 more minutes she desired to proceed with section. Discussed the risks and benefits of the section with the patient and consents were signed. Type and screen ordered. Patient to be taken back to the OR for primary section. Patient to receive Ancef 2 g IV prior to procedure. Nicolas Estes M.D. 6:48 AM 06/22/2018
[2018-06-22] MEDS ORDERED: Lidocaine 2% with EPINEPHrine 1:200,000 20 ML SDV ONE (07:05)
[2018-06-22] MEDS ORDERED: Oxytocin 10 Units/1 ML SDV ONE ×2 (07:23→07:41)
[2018-06-22] MEDS ORDERED: Meperidine PF 50 MG/ML Syringe ONE (07:27)
[2018-06-22] MEDS ORDERED: Morphine PF 1 MG/ML Amp ONE (07:30)
[2018-06-22] MEDS ORDERED: Lactated Ringers 1,000 ML ONE ×2 (07:31→07:40)
[2018-06-22] MEDS ORDERED: Ondansetron 4 MG/2 ML SDV ONE (07:32)
[2018-06-22] MEDS ORDERED: Ketorolac 30 MG/ML SDV ONE (07:32)
[2018-06-22] MEDS ORDERED: ceFAZolin 1 GM Vial ONE ×2 (07:45→07:46)
[2018-06-22] MEDS ORDERED: diphenhydrAMINE 50 MG/ML SDV IVPUSH PRN ×2 (08:01→09:36)
[2018-06-22] MEDS ORDERED: ePHEDrine 50 MG/ML SDV IVPUSH PRN ×2 (08:01→09:36)
[2018-06-22] MEDS ORDERED: HYDROmorphone 0.5 MG/0.5 ML Syringe IVPUSH PRN (08:01)
[2018-06-22] MEDS ORDERED: Ondansetron 4 MG/2 ML SDV IVPUSH PRN (08:01)
[2018-06-22] MEDS ORDERED: fentaNYL 100 MCG/2 ML SDV IVPUSH PRN (08:01)
[2018-06-22] MEDS ORDERED: Phenylephrine 1 MG in Sodium Chloride 0.9% 10 ML IV SCH (08:15)
--- NOTE | 2018-06-22 08:16 | PCM.POSTAN ---
POST ANESTHESIA ASSESSMENT - MENTAL STATUS Mental Status: Alert - VITAL SIGNS Pulse Rate: 96 SaO2: 94 Resp Rate: 17 Blood Pressure: 107/60 Temperature: 37.0 C - RESPIRATORY Respiratory Status: Respiratory Rate WNL, Airway Patent, O2 Saturation Stable - CARDIOVASCULAR CV Status: Pulse Rate WNL, Blood Pressure Stable - GASTROINTESTINAL GI Status: No Symptoms - POST OP HYDRATION Hydration Status: Adequate & Stable
--- NOTE | 2018-06-22 08:18 | PCM.OPNOTE ---
- General Post-Op/Procedure Note Date of Surgery/Procedure: 06/22/18 Operative Procedure(s): Primary section Findings: Live female delivered in vertex presentation at 0722. Weight of 3440 g ( 7 pounds 9.3 ounces). 8 and 9. Overall normal-appearing uterus, fallopian tubes and ovaries. There was however 1 small fibroid at the uterine fundus approximately 1 cm in size. Pre Op Diagnosis: Arrest of descent, failed vacuum extraction, maternal exhaustion, desires primary section Post-Op Diagnosis: Same Anesthesia Technique: Epidural Primary Surgeon: Nicolas Estes Anesthesia Provider: Lev Gross Dynamics Ax Consultant: Jeb Moss Dynamics Ax Consultant: Kailash Reeves (PA-S) Reason Dynamics Ax Consultant Was Necessary: Patient safety and reduction of morbidity and mortality Role of Dynamics Ax Consultant: Retraction for visualization during surgery Pathology: None Fluid Replacement, Intraop: 2,000 Output, Urine Amount: 100 EBL in mLs: 500 Complications: None Condition: Good Free Text/Narrative:: Intake & Output 06/21/18 06/22/18 06/22/18 22:59 06:59 14:59 Intake Total 120 2000 Balance 120 2000 Length of procedure: 43 minutes Procedure in Detail: The patient was seen on labor and delivery and the risks, benefits and complications were discussed with the patient. The patient desired to proceed with section secondary to arrest of descent at +4 station with failed vacuum extraction and maternal exhaustion and appropriate consents were signed. The patient was taken to operating room #1. A Time Out was held and the patient was identified using 2 identifiers and the procedure was confirmed. The patient was given epidural anesthesia and was placed in dorsal supine position with leftward tilt. She was given 2 g Ancef for antibiotic prophylaxis. The patient was prepped and draped in the usual sterile manner. The abdominal skin was tested and the dural anesthesia was found to be adequate. The skin was injected with 0.5% marcaine for local anesthesia. A Pfannenstiel skin incision was made and carried down through the subcutaneous tissue to the fascia with the scapel. The fascia was nicked in the midline using a scalpel and the fascial incision was extended transversely with Lambert scissors. The inferior aspect of the fascia was grasped with Sheryl clamps and tented upwards. The fascia was from the underlying rectus muscle bluntly and sharply with Lambert scissors. Attention was then turned to the superior aspect of the fascia and was grasped using Sheryl clamps and tented upwards. The underlying rectus muscle was dissected off bluntly and sharply with Lambert scissors. The peritoneum was identified and entered bluntly. The utero-vesical peritoneal reflection was identified and the peritoneum was incised with [place] scissors and transversely extended. The bladder blade was inserted and the lower uterine segment was identified. A low transverse uterine incision was made sharply with a scalpel and extended laterally bluntly. The infant's head was brought to the uterine incision, the bladder blade was removed and the was delivered atraumatically. On 06/22/2018 a live female infant was delivered in vertex position at 0722, wt of 3440 grams, 7 pounds and 9.3 ounces. APGARS were 8 & 9. The nose and mouth were suctioned with bulb suction, the cord was doubly clamped and cut and was transferred to the awaiting upholsterer apprentice, Dr. Durand. The placenta was removed intact and appeared normal with a three vessel cord. The uterus was exteriorized and the uterine cavity was cleaned using lap sponges. The hysterotomy was closed with a running locked suture of 0-Vicryl. A second suture of 0-Vicryl was used to imbricate the hysterotomy. The hysterotomy was hemostatic. The uterus, tubes and ovaries appeared overall normal. The uterus was then returned into the abdominal cavity. The hysterotomy was noted to remain hemostatic inside the abdominal cavity. The fascia was noted to be hemostatic and the fascia was then reapproximated with running sutures of 0-Vicryl. The skin was reapproximated using 4-0 Monocryl and Steri-strips were applied over the incision. Instrument, sponge, and needle counts were correct prior to the abdominal closure and at the conclusion of the case.
[2018-06-22] MEDS ORDERED: diphenhydrAMINE 50 MG/ML SDV IV PRN (09:36)
[2018-06-22] MEDS ORDERED: Naloxone 0.4 MG/ML SDV IVPUSH PRN (09:36)
[2018-06-22] MEDS ORDERED: Acetaminophen/oxyCODONE 325-5 MG Tab PO PRN ×2 (09:36)
[2018-06-22] MEDS ORDERED: Witch Hazel Medicated Pads 40/Jar TOP PRN (09:36)
[2018-06-22] MEDS ORDERED: Ondansetron 4 MG/2 ML SDV IV PRN (09:36)
[2018-06-22] MEDS ORDERED: Hydrocortisone Acetate 25 MG Supp RECTAL PRN (09:36)
[2018-06-22] MEDS ORDERED: Lanolin 100% Cream 7 GM Tube TOP PRN (09:36)
[2018-06-22] MEDS: Prenatal Multivitamin with Calcium/Folic Acid/Iron Tab PO SCH (10:09)
[2018-06-22] MEDS: Docusate Sodium 100 MG Cap PO SCH ×2 (10:09→22:07)
[2018-06-22] MEDS: Ketorolac 30 MG/ML SDV IVPUSH SCH ×2 (13:54→19:56)
[2018-06-23] MEDS: Ketorolac 30 MG/ML SDV IVPUSH SCH (01:22)
--- NOTE | 2018-06-23 07:23 | PCM.SN ---
- Free Text/Narrative Note: Post Operative Progress Note POD # 1 Subjective: Doing well overall. Ambulating without difficulty. Lochia minimal. Yee draining clear urine prior to removal this morning. Passing flatus. Tolerating regular diet without nausea or vomiting. Pain minimal on IV Toradol. Breast-feeding with minimal difficulty. Objective: Vitals: Vital Signs - 24 hr 06/22/18 06/22/18 06/22/18 08:08 08:15 08:16 Temperature 37.0 C Temperature [ 37.0 C Temporal] Pulse, 96 Peripheral Respiratory 17 15 17 Rate Blood Pressure 107/60 Blood Pressure 107/60 106/62 [Left Upper Arm ] O2 Sat by Pulse 94 L 94 L 94 L Oximetry 06/22/18 06/22/18 06/22/18 08:30 08:45 09:01 Temperature 37.1 C Temperature [ 36.9 C Temporal] Pulse, 93 Peripheral Respiratory 14 14 Rate Blood Pressure 119/73 Blood Pressure 99/65 112/69 [Left Upper Arm ] O2 Sat by Pulse 96 96 97 Oximetry 06/22/18 06/22/18 06/22/18 09:16 09:31 10:02 Temperature Temperature [ Temporal] Pulse, 97 82 71 Peripheral Respiratory Rate Blood Pressure 124/71 122/81 106/60 Blood Pressure [Left Upper Arm ] O2 Sat by Pulse 97 96 96 Oximetry 06/22/18 06/22/18 06/22/18 10:31 11:01 11:26 Temperature 36.9 C Temperature [ Temporal] Pulse, 69 70 85 Peripheral Respiratory 16 Rate Blood Pressure 104/63 112/71 114/74 Blood Pressure [Left Upper Arm ] O2 Sat by Pulse 97 97 97 Oximetry 06/22/18 15:27 Temperature 36.9 C Temperature [ Temporal] Pulse, 93 Peripheral Respiratory 14 Rate Blood Pressure 114/66 Blood Pressure [Left Upper Arm ] O2 Sat by Pulse 96 Oximetry 06/22/18 19:48 Temperature 37.6 C Temperature [ Temporal] Pulse, 106 H Peripheral Respiratory 16 Rate Blood Pressure 123/81 Blood Pressure [Left Upper Arm ] O2 Sat by Pulse 100 Oximetry 06/23/18 01:27 Temperature 37.3 C Temperature [ Temporal] Pulse, 84 Peripheral Respiratory 16 Rate Blood Pressure 129/80 Blood Pressure [Left Upper Arm ] O2 Sat by Pulse 99 Oximetry Physical Exam General: Alert and oriented, no acute distress Lungs: Clear to auscultation bilaterally Heart: Regular rate and rhythm Abdomen: Soft, minimal appropriate tenderness, non-distended, fundus midline, nontender and 1 fingerbreadth below the umbilicus Incision: Clean, dry and intact, no erythema, bleeding or drainage with Steri- Strips in place Extremities: 1+ edema in bilateral lower extremities to mid shins Labs: Laboratory Tests 06/21/18 06/21/18 06/21/18 Range/Units 10:00 10:00 10:00 WBC 6.21 (3.98-10.04) K/mm3 RBC 4.04 (3.98-5.22) M/mm3 Hgb 13.2 (11.2-15.7) gm/L Hct 39.4 (34.1-44.9) % MCV 97.5 H (79.4-94.8) fl MCH 32.7 H (25.6-32.2) pg MCHC 33.5 (32.2-35.5) g/dl RDW Std Deviation 44.9 (36.4-46.3) fL Plt Count 148 L (182-369) K/mm3 MPV 11.1 (9.4-12.3) fl Neut % (Auto) 70.6 (34.0-71.1) % Lymph % (Auto) 20.8 (19.3-51.7) % [place] % (Auto) 5.8 (4.7-12.5) % Eos % (Auto) 2.3 (0.7-5.8) Baso % (Auto) 0.2 (0.1-1.2) % Neut # (Auto) 4.39 (1.56-6.13) K/mm3 Lymph # (Auto) 1.29 (1.18-3.74) K/mm3 [place] # (Auto) 0.36 (0.24-0.36) K/mm3 Eos # (Auto) 0.14 (0.04-0.36) K/mm3 Baso # (Auto) 0.01 (0.01-0.08) K/mm3 RPR Non-reactive (NONREACTIVE) Blood Type A POSITIVE Gel Antibody Screen Negative 06/23/18 Range/Units 05:48 WBC 8.89 (3.98-10.04) K/mm3 RBC 2.98 L (3.98-5.22) M/mm3 Hgb 9.7 L (11.2-15.7) gm/L Hct 29.9 L (34.1-44.9) % MCV 100.3 H (79.4-94.8) fl MCH 32.6 H (25.6-32.2) pg MCHC 32.4 (32.2-35.5) g/dl RDW Std Deviation 45.8 (36.4-46.3) fL Plt Count 116 L (182-369) K/mm3 MPV 10.9 (9.4-12.3) fl Neut % (Auto) 85.0 H (34.0-71.1) % Lymph % (Auto) 10.1 L (19.3-51.7) % [place] % (Auto) 4.3 L (4.7-12.5) % Eos % (Auto) 0.4 L (0.7-5.8) Baso % (Auto) 0.1 (0.1-1.2) % Neut # (Auto) 7.55 H (1.56-6.13) K/mm3 Lymph # (Auto) 0.90 L (1.18-3.74) K/mm3 [place] # (Auto) 0.38 H (0.24-0.36) K/mm3 Eos # (Auto) 0.04 (0.04-0.36) K/mm3 Baso # (Auto) 0.01 (0.01-0.08) K/mm3 RPR (NONREACTIVE) Blood Type Gel Antibody Screen ASSESSMENT: 32-year-old female 001 s/p primary section POD #1 for arrest of descent, failed vacuum extraction delivery and maternal exhaustion, complicated by history of abnormal Pap smear PLAN: Doing well Breast-feeding with minimal difficulty. Assist as needed Incision healing well. Continue to keep clean and dry. Lochia minimal. Continue to monitor for appropriate lochia. Continue routine post-operative care Slightly more than expected drop in hemoglobin down to 9.7 this morning. We'll repeat CBC in the morning tomorrow. Patient overall doing well and denies any lightheadedness or dizziness with ambulation. No tachycardia or hypotension noted on vitals. Anticipate discharge home tomorrow if blood count is stable and patient doing well Nicolas Estes MD 7:20 AM 06/23/2018
[2018-06-23] MEDS: Ibuprofen 600 MG Tab PO PRN ×2 (09:07→15:22)
[2018-06-23] MEDS: Prenatal Multivitamin with Calcium/Folic Acid/Iron Tab PO SCH (09:08)
[2018-06-23] MEDS: Docusate Sodium 100 MG Cap PO SCH ×2 (09:08→20:14)
--- NOTE | 2018-06-23 11:23 | PCM48HPAN ---
Post Anesthesia Note - EVALUATION WITHIN 48HRS OF ANESTHETIC Vital Signs in Normal Range: Yes Patient Participated in Evaluation: Yes Respiratory Function Stable: Yes Airway Patent: Yes Cardiovascular Function Stable: Yes Hydration Status Stable: Yes Pain Control Satisfactory: Yes Nausea and Vomiting Control Satisfactory: Yes Mental Status Recovered: Yes
[2018-06-23] MEDS: Acetaminophen 325 MG Tab PO PRN ×2 (13:06→20:14)
[2018-06-24] MEDS: Ibuprofen 600 MG Tab PO PRN ×4 (01:17→22:15)
[2018-06-24] MEDS: Acetaminophen 325 MG Tab PO PRN ×3 (03:48→18:24)
--- NOTE | 2018-06-24 08:23 | PCM.SN ---
- Free Text/Narrative Note: Post Operative Progress Note POD # 2 Subjective: Doing well overall. Ambulating without difficulty. Lochia minimal. Voiding without difficulty. Passing flatus and has had a bowel movement. Tolerating regular diet without nausea or vomiting. Pain controlled with Tylenol and ibuprofen. Breast-feeding with minimal difficulty. Objective: Vitals: Vital Signs - 24 hr 06/23/18 06/23/18 06/23/18 09:13 15:18 20:23 Temperature 37.0 C 36.7 C 36.6 C Pulse, 98 86 85 Peripheral Respiratory 20 18 14 Rate Blood Pressure 118/84 128/80 124/89 O2 Sat by Pulse 98 99 98 Oximetry 06/24/18 03:51 Temperature 36.6 C Pulse, 78 Peripheral Respiratory 16 Rate Blood Pressure 106/79 O2 Sat by Pulse 98 Oximetry Physical Exam General: Alert and oriented, no acute distress Lungs: Clear to auscultation bilaterally Heart: Regular rate and rhythm Abdomen: Soft, minimal appropriate tenderness, non-distended, fundus midline, nontender and 1 fingerbreadth below the umbilicus Incision: Clean, dry and intact, no erythema, bleeding or drainage with Steri- Strips in place Extremities: 1+ edema in bilateral lower extremities to mid shins Labs: Laboratory Results - last 24 hr 06/24/18 Range/Units 05:45 WBC 6.69 (3.98-10.04) K/mm3 RBC 2.87 L (3.98-5.22) M/mm3 Hgb 9.2 L (11.2-15.7) gm/L Hct 28.6 L (34.1-44.9) % MCV 99.7 H (79.4-94.8) fl MCH 32.1 (25.6-32.2) pg MCHC 32.2 (32.2-35.5) g/dl RDW Std Deviation 45.1 (36.4-46.3) fL Plt Count 136 L (182-369) K/mm3 MPV 10.0 (9.4-12.3) fl Neut % (Auto) 77.4 H (34.0-71.1) % Lymph % (Auto) 15.4 L (19.3-51.7) % [place] % (Auto) 4.8 (4.7-12.5) % Eos % (Auto) 2.1 (0.7-5.8) Baso % (Auto) 0.0 L (0.1-1.2) % Neut # (Auto) 5.18 (1.56-6.13) K/mm3 Lymph # (Auto) 1.03 L (1.18-3.74) K/mm3 [place] # (Auto) 0.32 (0.24-0.36) K/mm3 Eos # (Auto) 0.14 (0.04-0.36) K/mm3 Baso # (Auto) 0.00 L (0.01-0.08) K/mm3 ASSESSMENT: 32-year-old female 001 s/p primary section POD #2 for arrest of descent, failed vacuum extraction delivery and maternal exhaustion, complicated by history of abnormal Pap smear PLAN: Doing well and pain able to be controlled with oral medications Breast-feeding with minimal difficulty. Assist as needed Incision healing well. Continue to keep clean and dry. Lochia minimal. Continue to monitor for appropriate lochia. Continue routine post-operative care Hemoglobin down to 9.2 this morning. Patient overall doing well and denies any lightheadedness or dizziness with ambulation. No tachycardia or hypotension noted on vitals. Anticipate discharge home tomorrow if infant improves and is doing well Nicolas Estes MD 8:21 AM 06/24/2018
[2018-06-24] MEDS: Docusate Sodium 100 MG Cap PO SCH ×2 (09:09→22:16)
[2018-06-24] MEDS: Prenatal Multivitamin with Calcium/Folic Acid/Iron Tab PO SCH (09:09)
[2018-06-25] MEDS: Acetaminophen 325 MG Tab PO PRN ×2 (00:25→06:10)
[2018-06-25] MEDS: Ibuprofen 600 MG Tab PO PRN ×2 (04:15→10:46)
--- NOTE | 2018-06-25 08:31 | PCM.SN ---
- Free Text/Narrative Note: Post Operative Progress Note POD # 3 Subjective: Doing well overall. Ambulating without difficulty. Lochia minimal. Voiding without difficulty. Passing flatus and has had a bowel movement again this morning. Tolerating regular diet without nausea or vomiting. Pain controlled with Tylenol and ibuprofen. Breast-feeding with minimal difficulty. Objective: Vitals: Vital Signs - 24 hr 06/24/18 06/24/18 06/24/18 09:00 15:22 22:06 Temperature 36.8 C 36.7 C Temperature [ 37.0 C Temporal] Pulse, 79 63 Peripheral Pulse, 81 Peripheral [ Pulse Oximetry] Respiratory 16 12 17 Rate Blood Pressure 136/89 139/85 O2 Sat by Pulse 99 100 100 Oximetry 06/25/18 03:36 Temperature 36.9 C Temperature [ Temporal] Pulse, 72 Peripheral Pulse, Peripheral [ Pulse Oximetry] Respiratory 16 Rate Blood Pressure 124/98 H O2 Sat by Pulse 100 Oximetry Physical Exam General: Alert and oriented, no acute distress Lungs: Clear to auscultation bilaterally Heart: Regular rate and rhythm Abdomen: Soft, minimal appropriate tenderness, non-distended, fundus midline, nontender and 1 fingerbreadth below the umbilicus Incision: Clean, dry and intact, no erythema, bleeding or drainage with Steri- Strips in place Extremities: 1+ edema in bilateral lower extremities to mid shins ASSESSMENT: 32-year-old female 001 s/p primary section POD #3 for arrest of descent, failed vacuum extraction delivery and maternal exhaustion, complicated by history of abnormal Pap smear PLAN: Doing well and pain able to be controlled with oral medications Breast-feeding with minimal difficulty. Assist as needed Incision healing well. Continue to keep clean and dry. Lochia minimal. Continue to monitor for appropriate lochia. Continue routine post-operative care Patient overall doing well without evidence of anemia and denies any lightheadedness or dizziness with ambulation. No tachycardia or hypotension noted on vitals. Anticipate discharge home today if improves and is doing well Nicolas Estes MD 8:30 AM 06/25/2018
--- NOTE | 2018-06-25 08:42 | PCM.DCSUM1 ---
Discharge Summary - Hospital Course Free Text/Narrative:: Procedure in Detail: The patient was seen on labor and delivery and the risks, benefits and complications were discussed with the patient. The patient desired to proceed with section secondary to arrest of descent at +4 station with failed vacuum extraction and maternal exhaustion and appropriate consents were signed. The patient was taken to operating room #1. A Time Out was held and the patient was identified using 2 identifiers and the procedure was confirmed. The patient was given epidural anesthesia and was placed in dorsal supine position with leftward tilt. She was given 2 g Ancef for antibiotic prophylaxis. The patient was prepped and draped in the usual sterile manner. The abdominal skin was tested and the dural anesthesia was found to be adequate. The skin was injected with 0.5% marcaine for local anesthesia. A Pfannenstiel skin incision was made and carried down through the subcutaneous tissue to the fascia with the scapel. The fascia was nicked in the midline using a scalpel and the fascial incision was extended transversely with Lambert scissors. The inferior aspect of the fascia was grasped with Sheryl clamps and tented upwards. The fascia was from the underlying rectus muscle bluntly and sharply with Lambert scissors. Attention was then turned to the superior aspect of the fascia and was grasped using Sheryl clamps and tented upwards. The underlying rectus muscle was dissected off bluntly and sharply with Lambert scissors. The peritoneum was identified and entered bluntly. The utero-vesical peritoneal reflection was identified and the peritoneum was incised with Metzenabaum scissors and transversely extended. The bladder blade was inserted and the lower uterine segment was identified. A low transverse uterine incision was made sharply with a scalpel and extended laterally bluntly. The infant's head was brought to the uterine incision, the bladder blade was removed and the was delivered atraumatically. On 06/22/2018 a live female was delivered in vertex position at 0722, wt of 3440 grams, 7 pounds and 9.3 ounces. APGARS were 8 & 9. The nose and mouth were suctioned with bulb suction, the cord was doubly clamped and cut and infant was transferred to the awaiting roller leveler operator, Dr. Durand. The placenta was removed intact and appeared normal with a three vessel cord. The uterus was exteriorized and the uterine cavity was cleaned using lap sponges. The hysterotomy was closed with a running locked suture of 0-Vicryl. A second suture of 0-Vicryl was used to imbricate the hysterotomy. The hysterotomy was hemostatic. The uterus, tubes and ovaries appeared overall normal. The uterus was then returned into the abdominal cavity. The hysterotomy was noted to remain hemostatic inside the abdominal cavity. The fascia was noted to be hemostatic and the fascia was then reapproximated with running sutures of 0-Vicryl. The skin was reapproximated using 4-0 Monocryl and Steri-strips were applied over the incision. Instrument, sponge, and needle counts were correct prior to the abdominal closure and at the conclusion of the case. HPI Initial Comments: Procedure in Detail: The patient was seen on labor and delivery and the risks, benefits and complications were discussed with the patient. The patient desired to proceed with section secondary to arrest of descent at +4 station with failed vacuum extraction and maternal exhaustion and appropriate consents were signed. The patient was taken to operating room #1. A Time Out was held and the patient was identified using 2 identifiers and the procedure was confirmed. The patient was given epidural anesthesia and was placed in dorsal supine position with leftward tilt. She was given 2 g Ancef for antibiotic prophylaxis. The patient was prepped and draped in the usual sterile manner. The abdominal skin was tested and the dural anesthesia was found to be adequate. The skin was injected with 0.5% marcaine for local anesthesia. A Pfannenstiel skin incision was made and carried down through the subcutaneous tissue to the fascia with the scapel. The fascia was nicked in the midline using a scalpel and the fascial incision was extended transversely with Lambert scissors. The inferior aspect of the fascia was grasped with Sheryl clamps and tented upwards. The fascia was from the underlying rectus muscle bluntly and sharply with Lambert scissors. Attention was then turned to the superior aspect of the fascia and was grasped using Sheryl clamps and tented upwards. The underlying rectus muscle was dissected off bluntly and sharply with Lambert scissors. The peritoneum was identified and entered bluntly. The utero-vesical peritoneal reflection was identified and the peritoneum was incised with Metzenabaum scissors and transversely extended. The bladder blade was inserted and the lower uterine segment was identified. A low transverse uterine incision was made sharply with a scalpel and extended laterally bluntly. The 's head was brought to the uterine incision, the bladder blade was removed and the was delivered atraumatically. On 06/22/2018 a live female was delivered in vertex position at 0722, wt of 3440 grams, 7 pounds and 9.3 ounces. APGARS were 8 & 9. The nose and mouth were suctioned with bulb suction, the cord was doubly clamped and cut and was transferred to the awaiting roller leveler operator, Dr. Durand. The placenta was removed intact and appeared normal with a three vessel cord. The uterus was exteriorized and the uterine cavity was cleaned using lap sponges. The hysterotomy was closed with a running locked suture of 0-Vicryl. A second suture of 0-Vicryl was used to imbricate the hysterotomy. The hysterotomy was hemostatic. The uterus, tubes and ovaries appeared overall normal. The uterus was then returned into the abdominal cavity. The hysterotomy was noted to remain hemostatic inside the abdominal cavity. The fascia was noted to be hemostatic and the fascia was then reapproximated with running sutures of 0-Vicryl. The skin was reapproximated using 4-0 Monocryl and Steri-strips were applied over the incision. Instrument, sponge, and needle counts were correct prior to the abdominal closure and at the conclusion of the case. Brief History: Procedure in Detail: The patient was seen on labor and delivery and the risks, benefits and complications were discussed with the patient. The patient desired to proceed with section secondary to arrest of descent at +4 station with failed vacuum extraction and maternal exhaustion and appropriate consents were signed. The patient was taken to operating room #1. A Time Out was held and the patient was identified using 2 identifiers and the procedure was confirmed. The patient was given epidural anesthesia and was placed in dorsal supine position with leftward tilt. She was given 2 g Ancef for antibiotic prophylaxis. The patient was prepped and draped in the usual sterile manner. The abdominal skin was tested and the dural anesthesia was found to be adequate. The skin was injected with 0.5% marcaine for local anesthesia. A Pfannenstiel skin incision was made and carried down through the subcutaneous tissue to the fascia with the scapel. The fascia was nicked in the midline using a scalpel and the fascial incision was extended transversely with Lambert scissors. The inferior aspect of the fascia was grasped with Sheryl clamps and tented upwards. The fascia was from the underlying rectus muscle bluntly and sharply with Lambert scissors. Attention was then turned to the superior aspect of the fascia and was grasped using Sheryl clamps and tented upwards. The underlying rectus muscle was dissected off bluntly and sharply with Lambert scissors. The peritoneum was identified and entered bluntly. The utero-vesical peritoneal reflection was identified and the peritoneum was incised with Metzenabaum scissors and transversely extended. The bladder blade was inserted and the lower uterine segment was identified. A low transverse uterine incision was made sharply with a scalpel and extended laterally bluntly. The 's head was brought to the uterine incision, the bladder blade was removed and the was delivered atraumatically. On 06/22/2018 a live female was delivered in vertex position at 0722, wt of 3440 grams, 7 pounds and 9.3 ounces. APGARS were 8 & 9. The nose and mouth were suctioned with bulb suction, the cord was doubly clamped and cut and infant was transferred to the awaiting roller leveler operator, Dr. Durand. The placenta was removed intact and appeared normal with a three vessel cord. The uterus was exteriorized and the uterine cavity was cleaned using lap sponges. The hysterotomy was closed with a running locked suture of 0-Vicryl. A second suture of 0-Vicryl was used to imbricate the hysterotomy. The hysterotomy was hemostatic. The uterus, tubes and ovaries appeared overall normal. The uterus was then returned into the abdominal cavity. The hysterotomy was noted to remain hemostatic inside the abdominal cavity. The fascia was noted to be hemostatic and the fascia was then reapproximated with running sutures of 0- Vicryl. The skin was reapproximated using 4-0 Monocryl and Steri-strips were applied over the incision. Instrument, sponge, and needle counts were correct prior to the abdominal closure and at the conclusion of the case. Diagnosis: Stroke: No - Discharge Data Discharge Date: 06/25/18 Discharge Disposition: Home, Self-Care 01 Condition: Good - Discharge Diagnosis/Problem(s) (1) 38 weeks gestation of SNOMED Code(s): 03108384 ICD Code: Z3A.38 - 38 WEEKS GESTATION OF Status: Acute Current Visit: Yes (2) Anemia complicating SNOMED Code(s): 56913120 ICD Code: O99.019 - ANEMIA COMPLICATING , UNSPECIFIED TRIMESTER Status: Acute Current Visit: Yes (3) delivery delivered SNOMED Code(s): 548919938 ICD Code: O82 - ENCOUNTER FOR DELIVERY WITHOUT INDICATION Status: Acute Current Visit: Yes (4) Failed vacuum extraction delivery SNOMED Code(s): 887284295 ICD Code: O66.5 - ATTEMPTED APPLICATION OF VACUUM EXTRACTOR AND FORCEPS Status: Acute Current Visit: Yes (5) Arrest of descent, delivered, current hospitalization SNOMED Code(s): 31930995 ICD Code: O62.1 - SECONDARY UTERINE INERTIA Status: Acute Current Visit: Yes - Patient Summary/Data Operative Procedure(s) Performed: Primary section Complications: None Consults: None Hospital Course: Freda Obando was admitted for spontaneous rupture membranes. She was started on Pitocin for augmentation of labor. She was given an epidural for anesthesia. She progressed to complete and pushing and had an attempted vacuum extraction delivery that was unsuccessful with 3 pop offs area she pushed for approximately 30 minutes after failed vacuum extraction and had arrest of descent at +4 station and maternal exhaustion requested section. She was taken back to the OR and given medications through her epidural for anesthesia. She was given 2 g Ancef IV for antibiotic prophylaxis. She was prepped and draped in the normal fashion. On 06/22/2018 she had a primary delivery of a live female infant at 0722. Apgars of 8 and 9. Weight of 3440 g (7 pounds 9.3 ounces). She was closed in a normal fashion. There were no complications with the procedure. Please see the operative report for full details. Her post operative course was uneventful. Her pain was well controlled and she had minimal lochia. She was ambulating, tolerating a regular diet and voiding normally. She was passing flatus and has had a bowel movement. She was breast feeding difficulty. She was afebrile and her hematocrit was 28.6 on POD #2. She desired to be discharged home in the afternoon of POD #3. Her blood type is A+. - Patient Instructions Diet: Regular Diet as Tolerated Activity: Apply Ice, As Tolerated, No Lifting Over 25 Pounds Activity, Other: Nothing in the vagina for 6 weeks Driving: Do Not Drive (While having significant pain and unable to react quickly or while taking narcotic medications) Showering/Bathing: May Shower Wound/Incision Care: Keep Operative Site/Wound Site Clean and Dry Notify Provider of: Fever, Increased Pain, Swelling and Redness, Drainage, Nausea and/or Vomiting Other/Special Instructions: Please contact your physician's office if you note any bleeding or pus coming from the abdominal incision. Please contact your physician's office if you have heavy vaginal bleeding enough to soak a pad in less than an hour for several hours. Monitor for any signs of an infection in the breasts with severe pain or redness of the breast. - Discharge Plan *PRESCRIPTION DRUG MONITORING PROGRAM REVIEWED*: Not Applicable *COPY OF PRESCRIPTION DRUG MONITORING REPORT IN PATIENT PARRIS: Not Applicable Home Medications: Home Meds Ferrous Sulfate 325 mg PO BID 06/21/18 [History] Vits #93/Iron Fum/FA [ Formula Tablet] 1 each PO DAILY [History] Acetaminophen [Tylenol] 650 mg PO Q6H PRN tablet 06/25/18 [Rx] Docusate Sodium [Colace] 100 mg PO BID cap 06/25/18 [Rx] Hydrocortisone Acetate [Anucort-HC] 25 mg RECTAL BID PRN supp 06/25/18 [Rx] Ibuprofen [Motrin] 600 mg PO Q6H PRN tablet 06/25/18 [Rx] Lanolin [Lansinoh HPA] 1 applic TOP ASDIRECTED PRN tube 06/25/18 [Rx] Witch Rossi [Tucks] 1 pad TOP ASDIRECTED PRN pad 06/25/18 [Rx] Patient Handouts: Delivery, Care After, Home Care Instructions for Mom Referrals: Nicolas Estes MD [Primary Care Provider] - (Follow-up in 2 weeks for routine postoperative appointment earlier as needed.) - Discharge Summary/Plan Comment DC Time >30 min.: No - Patient Data Vitals - Most Recent: Last Vital Signs Temp 36.9 C 06/25/18 03:36 Pulse 72 06/25/18 03:36 Resp 16 06/25/18 03:36 BP 124/98 H 06/25/18 03:36 Pulse Ox 100 06/25/18 03:36 Weight - Most Recent: 77.564 kg Med Orders - Current: Current Medications Acetaminophen (Tylenol) 650 mg PO Q6H PRN PRN Reason: Pain/Fever Last Admin: 06/25/18 06:10 Dose: 650 mg Diphenhydramine HCl (Benadryl) 25 mg IVPUSH Q6H PRN PRN Reason: Itching or Nausea Docusate Sodium (Colace) 100 mg PO BID [facility] Last Admin: 06/24/18 22:16 Dose: 100 mg Emollient Ointment (Lansinoh Hpa) 0 gm TOP ASDIRECTED PRN PRN Reason: Sore Nipples Ephedrine Sulfate (Ephedrine Sulfate) 5 mg IVPUSH SEECOMMENT PRN PRN Reason: Other Hydrocortisone Acetate (Anucort-Hc) 25 mg RECTAL BID PRN PRN Reason: Hemorrhoids Oxytocin/Lactated Ringer's (Pitocin In Lr 10 Units/1,000 Ml) 10 unit in 1,000 mls @ 100 mls/hr IV .CONTINUOUS HELENA; Protocol Ibuprofen (Motrin) 600 mg PO Q6H PRN PRN Reason: mild pain or fever Last Admin: 06/25/18 04:15 Dose: 600 mg Naloxone HCl (Narcan) 0.1 mg IVPUSH SEECOMMENT PRN PRN Reason: Respiratory Depression Ondansetron HCl (Zofran) 4 mg IV Q8H PRN PRN Reason: Nausea/Vomiting Oxycodone/Acetaminophen (Percocet 325-5 Mg) 1 tab PO Q6H PRN PRN Reason: Pain (moderate 4-6) Oxycodone/Acetaminophen (Percocet 325-5 Mg) 2 tab PO Q6H PRN PRN Reason: Pain (severe 7-10) Prenat Multivit/Client Reporting Associate/Iron/Folic Ac ( Plus Iron) 1 each PO DAILY [facility] Last Admin: 06/24/18 09:09 Dose: 1 each Witch Rossi (Tucks) 1 pad TOP ASDIRECTED PRN PRN Reason: Perineal Comfort Measure Discontinued Medications Bupivacaine HCl (Marcaine 0.5%) Confirm Administered Dose 30 ml .ROUTE .STK-MED ONE Stop: 06/22/18 06:38 Last Admin: 06/22/18 07:17 Dose: 20 ml Bupivacaine HCl (Sensorcaine-Mpf 0.25%) 10 ml .ROUTE .STK-MED ONE Stop: 06/21/18 22:01 Cefazolin Sodium (Ancef) Confirm Administered Dose 1 gm .ROUTE .STK-MED ONE Stop: 06/22/18 07:46 Cefazolin Sodium (Ancef) Confirm Administered Dose 1 gm .ROUTE .STK-MED ONE Stop: 06/22/18 07:47 Citric Acid/Sodium Citrate (Bicitra Solution) 30 ml PO ONETIME ONE Stop: 06/22/18 06:39 Last Admin: 06/22/18 06:45 Dose: 30 ml Diphenhydramine HCl (Benadryl) 25 mg IVPUSH Q6H PRN PRN Reason: Itching Diphenhydramine HCl (Benadryl) 25 mg IVPUSH Q6H PRN PRN Reason: pruritis Stop: 06/22/18 11:00 Diphenhydramine HCl (Benadryl) 25 mg IV Q4H PRN PRN Reason: Itching Ephedrine Sulfate (Ephedrine Sulfate) 5 mg IVPUSH ASDIRECTED PRN PRN Reason: HYPOTENTSION Ephedrine Sulfate (Ephedrine Sulfate) 5 mg IVPUSH ASDIRECTED PRN PRN Reason: Hypotension Stop: 06/22/18 11:00 Fentanyl (Sublimaze) 100 mcg EPIDUR Q3H PRN PRN Reason: Pain Last Admin: 06/21/18 15:29 Dose: 100 mcg Fentanyl (Sublimaze) 50 mcg IVPUSH Q5M PRN PRN Reason: Pain Stop: 06/22/18 11:00 Fentanyl/Bupivacaine HCl (Sosnwomg-Dsnny-Uw 2 Mcg/Ml-0.125%) 100 ml EP ASDIRECTED [facility] Last Admin: 06/22/18 00:21 Dose: 100 ml Hydromorphone HCl (Dilaudid) 0.5 mg IVPUSH Q15M PRN PRN Reason: Pain (severe 7-10) Stop: 06/22/18 11:00 Lactated Ringer's (Ringers, Lactated) 1,000 mls @ 100 mls/hr IV ASDIRECTED [facility] Last Admin: 06/21/18 19:45 Dose: 100 mls/hr Oxytocin/Lactated Ringer's (Pitocin In Lr 10 Units/1,000 Ml) 10 unit in 1,000 mls @ 500 mls/hr IV .CONTINUOUS HELENA Oxytocin/Lactated Ringer's (Pitocin In Lr 10 Units/1,000 Ml) 10 unit in 1,000 mls @ 12 mls/hr IV TITRATE HELENA; Protocol Last Titration: 06/22/18 03:25 Dose: 12 munits/min, 72 mls/hr Cefazolin Sodium/Dextrose 2 gm (/ Premix) 50 mls @ 100 mls/hr IV ONETIME ONE Stop: 06/22/18 07:07 Last Admin: 06/22/18 07:09 Dose: Not Given Lactated Ringer's (Ringers, Lactated) 1,000 mls @ 125 mls/hr IV ASDIRECTED HELENA Oxytocin/Lactated Ringer's (Pitocin In Lr 10 Units/1,000 Ml) 10 unit in 1,000 mls @ 100 mls/hr IV ASDIRECTED HELENA; Protocol Lactated Ringer's (Ringers, Lactated) Confirm Administered Dose 1,000 mls @ as directed .ROUTE .STK-MED ONE Stop: 06/22/18 07:32 Lactated Ringer's (Ringers, Lactated) Confirm Administered Dose 1,000 mls @ as directed .ROUTE .STK-MED ONE Stop: 06/22/18 07:41 Phenylephrine HCl 1 mg/ Sodium (Chloride) 10.1 mls @ 1 mls/sec IV TITRATE HELENA; Protocol Stop: 06/22/18 11:00 Lactated Ringer's (Ringers, Lactated) 1,000 mls @ 125 mls/hr IV ASDIRECTED HELENA Stop: 06/22/18 17:35 Last Admin: 06/22/18 10:46 Dose: 125 mls/hr Ketorolac Tromethamine (Toradol) Confirm Administered Dose 30 mg .ROUTE .STK- MED ONE Stop: 06/22/18 07:33 Ketorolac Tromethamine (Toradol) 30 mg IVPUSH Q6H HELENA Stop: 06/23/18 02:01 Last Admin: 06/23/18 01:22 Dose: 30 mg Lidocaine/Epinephrine (Xylocaine-Mpf 2%-Epi 1:200,000) Confirm Administered Dose 20 ml .ROUTE .STK-MED ONE Stop: 06/22/18 07:06 Meperidine HCl (Demerol) Confirm Administered Dose 50 mg .ROUTE .STK-MED ONE Stop: 06/22/18 07:28 Metoclopramide HCl (Reglan) Confirm Administered Dose 10 mg .ROUTE .STK-MED ONE Stop: 06/22/18 06:38 Last Admin: 06/22/18 07:09 Dose: Not Given Metoclopramide HCl (Reglan) 10 mg IVPUSH ONETIME ONE Stop: 06/22/18 06:39 Last Admin: 06/22/18 06:45 Dose: 10 mg Morphine Sulfate (Duramorph Pf) Confirm Administered Dose 1 mg .ROUTE .STK-MED ONE Stop: 06/22/18 07:31 Nalbuphine HCl (Nubain) 10 mg IVPUSH Q2H PRN PRN Reason: pain Nalbuphine HCl (Nubain) 10 mg IVPUSH Q2H PRN PRN Reason: pain Ondansetron HCl (Zofran) Confirm Administered Dose 4 mg .ROUTE .STK-MED ONE Stop: 06/22/18 07:33 Ondansetron HCl (Zofran) 4 mg IVPUSH ONETIME PRN PRN Reason: Nausea/Vomiting Stop: 06/22/18 11:00 Oxytocin (Pitocin) Confirm Administered Dose 10 unit .ROUTE .STK-MED ONE Stop: 06/22/18 07:24 Oxytocin (Pitocin) Confirm Administered Dose 10 unit .ROUTE .STK-MED ONE Stop: 06/22/18 07:42 Sodium Chloride (Saline Flush) 10 ml FLUSH ASDIRECTED PRN PRN Reason: Keep Vein Open Sodium Chloride (Saline Flush) 10 ml FLUSH ASDIRECTED PRN PRN Reason: Keep Vein Open
[2018-06-25] MEDS: Docusate Sodium 100 MG Cap PO SCH (09:30)
[2018-06-25] MEDS: Prenatal Multivitamin with Calcium/Folic Acid/Iron Tab PO SCH (09:30)
== END 2018-06-25 12:25 | disposition home or self-care (01) | DRG 788 ==
LOC: JD.OBCHECK 09:10 → JD.OB 09:16 → JD.OBCHECK 16:33 → OBSVTOIN 06-22 07:22 → JD.OB 06-22 07:28
PROVIDERS: ADMIT Obstetrics & Gynecology; ATTEND Obstetrics & Gynecology
PROC: 3E0R3BZ Introduction of Anesthetic Agent into Spinal Canal, Percutaneous Approach (ICD-10-PCS; 2018-06-21)
PROC: 00HU33Z Insertion of Infusion Device into Spinal Canal, Percutaneous Approach (ICD-10-PCS; 2018-06-21)
PROC: 10D00Z1 Extraction of Products of Conception, Low, Open Approach (ICD-10-PCS; principal; 2018-06-22)
PROC: 10907ZC Drainage of Amniotic Fluid, Therapeutic from Products of Conception, Via Natural or Artificial Opening (ICD-10-PCS; principal; 2018-06-22)
DX: O98.32 Other infections with a predominantly sexual mode of transmission complicating childbirth (principal); O75.81 Maternal exhaustion complicating labor and delivery; O66.5 Attempted application of vacuum extractor and forceps; O62.1 Secondary uterine inertia; O99.02 Anemia complicating childbirth; D64.9 Anemia, unspecified; Z37.0 Single live birth; Z3A.38 38 weeks gestation of pregnancy; A63.0 Anogenital (venereal) warts; O99.62 Diseases of the digestive system complicating childbirth; K21.9 Gastro-esophageal reflux disease without esophagitis; O34.13 Maternal care for benign tumor of corpus uteri, third trimester; D25.9 Leiomyoma of uterus, unspecified; Z88.8 Allergy status to other drugs, medicaments and biological substances
CPT/HCPCS: 36415; 51701; 51702; 59025; 85025; 86592; 86850; 86900; 86901; A9270-GY; J0690; J1885; J2175; J2274; J2405; J2590; J2765; J3010; J3490; J7120

== ENCOUNTER 2022-11-06 05:46 | Inpatient (IN) | payer OTHER ==
[~2022-11-06 05:46] MED LIST: Bupivacaine 0.25% 10 ML SDV ONE; Lidocaine 1% 10 ML MDV ONE
[2022-11-06] MEDS: Lactated Ringers 1,000 ML IV SCH ×2 (06:00→06:55)
[2022-11-06] MEDS ORDERED: Ondansetron 4 MG/2 ML SDV IVPUSH PRN (06:04)
[2022-11-06] MEDS ORDERED: Sodium Chloride 0.9% 10 ML Syringe FLUSH PRN (06:04)
[2022-11-06] MEDS ORDERED: Lidocaine 1% 50 ML MDV INJECT ONE (06:04)
[2022-11-06] MEDS ORDERED: Nalbuphine 10 MG/0.5 ML Syringe IVPUSH PRN (06:04)
[2022-11-06] MEDS ORDERED: Oxytocin/Lactated Ringers 10 UNIT/1,000 ML BAG IV SCH (06:15)
[2022-11-06 06:35] LABS: BASOPHILS ABSOLUTE AUTO 0.01 K/mm3 (0.01-0.08); BASOPHILS PERCENT AUTO 0.2 % (0.1-1.2); EOSINOPHILS ABSOLUTE AUTO 0.16 K/mm3 (0.04-0.36); EOSINOPHILS PERCENT AUTO 2.8 (0.7-5.8); HEMATOCRIT 37.9 % (34.1-44.9); HEMOGLOBIN 12.6 gm/dl (11.2-15.7); IMMATURE GRAN ABSOLUTE AUTO 0.02 K/mm3 (0.00-0.10); IMMATURE GRAN PERCENT AUTO 0.3 % (<=1.0); LYMPHOCYTES ABSOLUTE AUTO 1.39 K/mm3 (1.18-3.74); MEAN CORPUSCULAR HEMOGLOBIN 31.3 pg (25.6-32.2); MEAN CORPUSCULAR HGB CONC 33.2 g/dl (32.2-35.5); MEAN CORPUSCULAR VOLUME 94.3 fl (79.4-94.8); MEAN PLATELET VOLUME 11.4 fl (9.4-12.3); MONOCYTES ABSOLUTE AUTO 0.41 K/mm3 (0.24-0.36); MONOCYTES PERCENT AUTO 7.1 % (4.7-12.5); NEUTROPHILS ABSOLUTE AUTO 3.79 K/mm3 (1.56-6.13); NEUTROPHILS PERCENT AUTO 65.6 % (34.0-71.1); RED BLOOD CELL COUNT 4.02 M/mm3 (3.98-5.22); WHITE BLOOD CELL COUNT,WBC 5.78 K/mm3 (3.98-10.04)
[2022-11-06] MEDS ORDERED: Bupivacaine/fentaNYL/NS 100 ML Bag EPIDUR PRN (06:36)
[2022-11-06] MEDS ORDERED: diphenhydrAMINE 50 MG/ML SDV IVPUSH PRN (06:36)
[2022-11-06] MEDS ORDERED: ePHEDrine 50 MG/ML SDV IVPUSH PRN (06:36)
[2022-11-06] MEDS ORDERED: fentaNYL 100 MCG/2 ML SDV EPIDUR PRN (06:36)
[2022-11-06] MEDS ORDERED: fentaNYL 100 MCG/2 ML SDV ONE (06:41)
[2022-11-06 06:51] LABS: PLATELET COUNT,PLT 152 K/mm3 (182-369)
[2022-11-06] MEDS ORDERED: Sodium Chloride 0.9% 10 ML Syringe FLUSH SCH (09:00)
[2022-11-06] MEDS ORDERED: Acetaminophen 325 MG Tab PO PRN ×2 (10:18)
[2022-11-06] MEDS ORDERED: Ibuprofen 600 MG Tab PO PRN ×2 (10:18)
[2022-11-06] MEDS ORDERED: Benzocaine/Menthol 20%-0.5% Spray 78 GM Cannister TOP PRN ×2 (10:18)
[2022-11-06] MEDS ORDERED: Witch Hazel Medicated Pads 40/Jar TOP PRN ×2 (10:18)
== END 2022-11-07 11:42 | disposition home or self-care (01) | DRG 807 ==
LOC: JD.OBCHECK 05:46 → JD.OB 06:05 → JD.OBCHECK 06:06 → OBSVTOIN 09:32 → JD.OB 09:33
PROVIDERS: ADMIT Obstetrics & Gynecology; ATTEND Obstetrics & Gynecology
PROC: 10E0XZZ Delivery of Products of Conception, External Approach (ICD-10-PCS; principal; 2022-11-06)
PROC: 0KQM0ZZ Repair Perineum Muscle, Open Approach (ICD-10-PCS; 2022-11-06)
PROC: 3E0R3BZ Introduction of Anesthetic Agent into Spinal Canal, Percutaneous Approach (ICD-10-PCS; 2022-11-06)
PROC: 00HU33Z Insertion of Infusion Device into Spinal Canal, Percutaneous Approach (ICD-10-PCS; 2022-11-06)
DX: O99.284 Endocrine, nutritional and metabolic diseases complicating childbirth (principal); Z37.0 Single live birth; E03.9 Hypothyroidism, unspecified; D64.9 Anemia, unspecified; O70.1 Second degree perineal laceration during delivery; Z96.22 Myringotomy tube(s) status; O99.02 Anemia complicating childbirth; Z3A.39 39 weeks gestation of pregnancy; Z79.82 Long term (current) use of aspirin; Z79.899 Other long term (current) drug therapy; Z79.890 Hormone replacement therapy
CPT/HCPCS: 01967; 36415; 51701; 59025; 59409; 82947; 85025; 86592; 86850; 86900; 86901; 99140; A9270-GY; J2590; J3010; J3490; J7120